=== PATIENT | female | born 1985 | race Caucasian/White ===

== ENCOUNTER 2020-09-18 12:42 | Observation (INO) | payer OTHER, SELFPAY ==
--- NOTE | ~2020-09-18 | US_ITS ---
EXAMINATION: US OB limited w BPP DATE: 09/18/2020 15:03 INDICATION: Spotting during third trimester TECHNIQUE: Real-time pelvic ultrasound was performed. The interpreting radiologist was not present fo r the study. COMPARISON: None. FINDINGS: There is a single living fetus in vertex presentation. The placenta is anterior. heart rate is 126 beats per minute (bpm). The amniotic fluid index is 19.7 cm which is normal Biophysical profile performed by the technologist: breathing (30 sec sustained breathing in 30 minutes): 2 out of 2 movement (3 gross body movements in 30 minutes): 2 out of 2 tone (one episode of zzyjfmo-lgtcyssvm-cxdhifa limb movement): 2 out of 2 Amniotic fluid pocket (2 cm): 2 out of 2 Total score: 8 out of 8 IMPRESSION: 1. Single living fetus in vertex presentation. 2. Biophysical profile 8 out of 8. 3. Normal amniotic fluid index. Reviewed, dictated and finalized at location A. 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
--- NOTE | 2020-09-18 12:42 | OBADM ---
This patient, Marily Pratt, admitted to the OB room OB Post 116 for observation. Patient/family oriented to hospital policies and general routines including ID bracelet, bed and alarms, visiting hours, pain management, procedures, bathroom and other care routines, personal items, smoking policy, room service/diet, and visiting hours. Patient/Family are encouraged to report perceived risks to care and to ask questions if they do not understand what they are told or what they should do.
[2020-09-18 13:00] VITALS: BP 128/76; PULSE 97
[2020-09-18 13:01] VITALS: BP 128/77; PULSE 93
[2020-09-18 13:16] VITALS: BP 108/56; PULSE 87
[2020-09-18 13:17] VITALS: BP 108/56; PULSE 87
[2020-09-18 13:30] VITALS: BP 110/61; PULSE 83
[2020-09-18 13:30] LABS: Add Urine Microscopic? YES; Appearance Urine Cloudy (Clear); Bacteria Urine Trace /hpf; Bilirubin Urine Negative (Negative); Blood Urine Negative (Negative); Color Urine Yellow (Yellow); Glucose Urine UA Negative (Negative); Ketones Urine Negative (Negative); Leukocyte Esterase Ur Negative LEU/UL (Negative); Nitrate Urine Negative (Negative); Protein Urine Negative (Negative); RBC Urine 0-2 /hpf (0-2); Specific Grav Ur 1.005 (1.001-1.035); Squamous Epithelial Cell Urine Occasional /hpf (Few); Urobilinogen Urine Negative mg/dL (<2.0)
[2020-09-18 13:45] VITALS: BP 113/71; PULSE 90
[2020-09-18 13:51] LABS: Fetal Fibronectin Negative
--- NOTE | 2020-09-18 15:22 | PC.NURSE ---
Dr. Calix notified of lab results, NST, SVE and ultrasound results. Discharge orders received.
--- NOTE | 2020-10-17 09:46 | PM.OBTRLD ---
OB - Triage/Final Diagnosis Evaluation Laboratory results: Laboratory Tests 09/18/20 09/18/20 13:08 13:08 Urine Color Yellow Urine Appearance Cloudy H Urine pH 7.0 Ur Specific [place] 1.005 Urine Protein Negative Urine Glucose (UA) Negative Urine Ketones Negative Ur Blood (Man) Negative Urine Nitrate Negative Urine Bilirubin Negative Urine Urobilinogen Negative Leukocyte Esterase Rfl Negative Urine RBC 0-2 Urine WBC 4-6 H Ur Squamous Epith Cells Occasional Urine Bacteria Trace Fibronectin Negative Final Diagnosis (1) Spotting complicating , third trimester: Code(s): O26.853 - Spotting complicating , third trimester Status: Acute
== END 2020-09-18 15:36 | disposition home or self-care (01) ==
PROVIDERS: Admitting Provider Obstetrics & Gynecology; Visit Provider Obstetrics & Gynecology
DX: O26.853 Spotting complicating pregnancy, third trimester (principal); Z3A.00 Weeks of gestation of pregnancy not specified
CPT/HCPCS: 76815; 76819; 81001; 82731; G0378; G0379

== ENCOUNTER 2020-10-19 14:09 | Outpatient (CLI) | payer OTHER, SELFPAY ==
[2020-10-19 14:46] LABS: Hematocrit 33.2 % (37.0-47.0); Hemoglobin 11.3 g/dL (12.0-15.0); Mean Corpuscular Hemoglobin 28.4 pg (26-34); Mean Corpuscular Volume 83.4 fl (80-100); Platelet Count Result 239 k/mm3 (150-375); Red Blood Count 3.98 M/mm3 (4.2-5.4); Red Cell Distribution Width 15.1 % (11.5-14.5); White Blood Count 10.7 K/mm3 (4.5-10.0)
[2020-10-20 09:10] LABS: Rapid Plasma Reagin Non-Reactive (NonReactive)
== END 2020-10-19 14:10 | disposition home or self-care (01) ==
LOC: ANHLAB 14:10
PROVIDERS: PCP Physician Assistant; Visit Provider Obstetrics & Gynecology
DX: Z01.818 Encounter for other preprocedural examination (principal)
CPT/HCPCS: 36415; 85027; 86592; 86850; 86900; 86901

== ENCOUNTER 2020-10-20 05:32 | Inpatient (IN) | payer OTHER, SELFPAY ==
[2020-10-20] VITALS (56 sets, daily range): BP systolic 87–143; BP diastolic 57–95; PULSE 18–98; RESP 14–18; TEMP 36.2–36.8; O2SAT 95–100; BMI 33.3
[2020-10-20] MEDS: LACTATED RINGERS 1,000 ML 125 ML IV CONT (06:41)
--- NOTE | 2020-10-20 06:46 | LDADM ---
This patient, Jaimie Pratt, was admitted to Labor/Delivery/Recovery 120 on 10/20/20 at 05:32. Plans for labor, pain management and were discussed with patient. Patient/family oriented to hospital policies and general routines including ID bracelet, bed and alarms, visiting hours, pain management, procedures, bathroom and other care routines, personal items, smoking policy, room service/diet and guest tray routines, security routines, and visiting hours. Patient/Family are encouraged to report perceived risks to care and to ask questions if they do not understand what they are told or what they should do. See OBIX for further documentation.
--- NOTE | 2020-10-20 06:58 | WPDANESEPPF ---
Anes - Initial Pre Proc Eval Procedure: Operation Date: 10/20/20 07:30 Proposed Procedures p Repeat Section - Yong Calix MD Date/Time: 10/20/20 06:58 Surgeon: Yong Calix MD Pre Op Diagnosis: Patient Data Age: 35 Gender: F Height: 5 ft 1 in Weight: 80 kg Last Vital Signs Pulse 95 10/20/20 06:32 BP 116/71 10/20/20 06:32 Allergies Allergy/AdvReac Type Severity Reaction Status Date / Time gluten Allergy Severe Vomiting Verified 10/19/20 13:45 Penicillins Allergy Severe Anaphylaxis Verified 10/19/20 13:45 Home Medications Medication Instructions Recorded Confirmed Type docosahexaenoic acid 200 mg capsule 200 mg PO DAILY cap 03/22/20 10/19/20 History blood sugar diagnostic #10 ea 08/15/20 10/19/20 History blood-glucose meter #1 ea 08/15/20 10/19/20 History lancets and blood glucose strips #1 08/15/20 10/19/20 History combo pack blood sugar diagnostic #10 ea 08/16/20 10/19/20 Rx blood-glucose meter #1 ea 08/16/20 10/19/20 Rx [id number]-vit C-docusate sod 1 tablet PO DAILY 08/16/20 10/19/20 History 90 mg-1 mg-12 mcg-120 mg-50mg tablet lancets 30 gauge #100 ea 08/26/20 10/19/20 Rx Vitamin 1 tablet PO DAILY 09/18/20 10/19/20 History cholecalciferol (vitamin D3) 50 mcg PO DAILY 10/08/20 10/19/20 History omega-3 fatty acids [Fish Oil] See Rx Instructions .ROUTE .COMPLEX 10/08/20 10/19/20 History Patient hx anesthesia problems: none Family hx anesthesia problems: none PMFSH Surgical History Surgical History History of myomectomy Previous section Family History Family History Father Malignant neoplasm of prostate Social History Social History Smoking status: Never smoker Alcohol intake: current Substance use: never Gender identity (if verbalized by the patient): Female Spiritual care concerns: No Anes - Eval Final PreProcedure Day of Procedure 10/20/20 06:58 Patient weight: overweight Heart: regular rate and rhythm Lungs: clear to auscultation Airway: Mallampati scale class II Neurological: alert and oriented Last oral intake: >/= 8 hours ASA classification: II Emergent: no Anesthetic plan: proceed Anesthesia type and monitoring: regional spinal and standard monitoring Informed Consent: The patient's anesthetic plan and its attendant risks and benefits were discussed with the patient/family/POA. Questions were solicited and answers provided to the satisfaction of the patient/family/POA.
--- NOTE | 2020-10-20 07:14 | PM.IMHP ---
H&P: HPI History of Present Illness Date/Time: 10/20/20 07:14 Chief Complaint: Elective repeat cesearean section. Narrative: Jaimie Pratt is a 35 year old female at 37 5/7 weeks admitted for repeat cesearean section. She has had a prior myomectomy and has been recommended for repeat before onset of labor. PNC also significant for advanced maternal age. She has had normal aneuploid testing. She had a prior child, IVF conception with imperforate anus and small VSD, not requiring surgery. She did have an abnormal one hour and declined three hour and has been doing fingersticks and she was monitoring her carbohydrate intake during and her finger sticks have been normal. Therefore did not get diagnosis of gestational diabetes. She had level 2 there was a mild grade 1 UTD at second trimester survey. This resolved. Not seen on subsequent ultrasounds. She has a small fibroid, last measurement was 2cm. She had a normal echo. Has anemia of . She is taking iron supplementation. She does not desire permanent sterilization. She is planning on getting vasectomy. Labs reviewed. Pos GBS resistant to Clindamycin. Review of Systems Review of Systems: All systems reviewed & are unremarkable except as noted in HPI and below Constitutional: Constitutional: Reports no additional constitutional complaints and Denies headache(s) Eyes: Eyes: Denies spots in vision ENT: Reports system reviewed and no additional complaints, except as documented and Denies headache(s) Cardiovascular: Cardiovascular: Denies chest pain and Denies dyspnea Respiratory: Respiratory: Denies dyspnea Gastrointestinal: Gastrointestinal: Reports no additional gastrointestinal complaints Genitourinary: Genitourinary: Reports amenorrhea Musculoskeletal: Musculoskeletal: Reports no additional musculoskeletal complaints Integumentary/Breasts: Skin/Breast: Denies breast mass and Denies rash Neurologic: Denies headache(s) Psychiatric: Psychiatric: Reports no additional psychiatric complaints [facility] Surgical History Surgical History History of myomectomy Previous section Family History Family History Father Malignant neoplasm of prostate Social History Social History Smoking status: Never smoker Alcohol intake: current Substance use: never Gender identity (if verbalized by the patient): Female Spiritual care concerns: No Meds Home Medications and Allergies Home Medications Medication Instructions Recorded Confirmed Type docosahexaenoic acid 200 mg capsule 200 mg PO DAILY cap 03/22/20 10/19/20 History blood sugar diagnostic #10 ea 08/15/20 10/19/20 History blood-glucose meter #1 ea 08/15/20 10/19/20 History lancets and blood glucose strips #1 08/15/20 10/19/20 History combo pack blood sugar diagnostic #10 ea 08/16/20 10/19/20 Rx blood-glucose meter #1 ea 08/16/20 10/19/20 Rx qnrw-CJ-[id number]-vit C-docusate sod 1 tablet PO DAILY 08/16/20 10/19/20 History 90 mg-1 mg-12 mcg-120 mg-50mg tablet lancets 30 gauge #100 ea 08/26/20 10/19/20 Rx Vitamin 1 tablet PO DAILY 09/18/20 10/19/20 History cholecalciferol (vitamin D3) 50 mcg PO DAILY 10/08/20 10/19/20 History omega-3 fatty acids [Fish Oil] See Rx Instructions .ROUTE .COMPLEX 10/08/20 10/19/20 History Allergies Allergy/AdvReac Type Severity Reaction Status Date / Time gluten Allergy Severe Vomiting Verified 10/19/20 13:45 Penicillins Allergy Severe Anaphylaxis Verified 10/19/20 13:45 Vital Signs Vital Signs - 24 hr 10/20/20 06:32 Pulse Rate 95 Blood Pressure 116/71 Exam Const: General: no acute distress Eyes: General: appearance normal, both eyes and all related structures Resp: Effort & Inspection: normal respiratory effort Cardio:
[2020-10-20 08:04] LABS: Glucose Point of Care 98 (65-105)
[2020-10-20] MEDS: KETOROLAC 30 MG/ML VIAL (*BKC) IV PUSH (08:23)
[2020-10-20] MEDS: OXYTOCIN 30 UNITS/NS 500 ML 30 UNITS/500 ML BAG 125 UNITS IV CONT (09:21)
--- NOTE | 2020-10-20 10:04 | PM.PROC ---
Procedure Note - Detailed Date of procedure: 10/20/20 Pre-op diagnosis: 1. Elective repeat cesearean section. 2. Prior myomectomy 3. Advanced maternal age 4. GBS carrier 5. Fibroid uterus. Post-op diagnosis: same Procedure performed: Repeat low transverse cesearean section Description of procedure: After informed consent was obtained patient was taken to the operating room and adequate spinal anesthesia was administered. She was placed in supine position and prepped and draped in sterile fashion. Attention was turned to the abdomen and a Pfannenstiel skin incision was made along her prior Pfannenstiel scar. The subcutaneous tissue was dissected with scalpel and cautery. The fascia was incised in the midline stented bilaterally with Shane scissors. The fascia was from rectus muscle superiorly and inferiorly bluntly and sharply. Scar tissue of the abdominal muscles to the fascia was lysed with Shane scissors. The midline was identified the midline was entered and the peritoneum was tented up with clamps and entered with Metzenbaum scissors. The pelvic organs were visualized. The lower uterine segment and vesico-uterine peritoneum was visualized. The lower uterine segment was noted to be thin. It was intact. Bladder was dissected from lower uterine segment. A bladder flap was made. A low-transverse uterine incision was made and was extended bluntly. The amniotic cavity was entered. Clear fluid was noted. The incision was extended bluntly and the head and the rest the infant was delivered. The was vigrously crying upon delivery. The cord was doubly clamped and cut and the infant was handed to nursery staff in attendance. Cord segment was obtained for cord gases. Cord blood was obtained. The placenta was removed manually. The uterine cavity was sponge curetted. The uterus was noted to have good tone. The uterus was exteriorized. There were noted to be two lower posterior fibroids. Approximately 2cm. The incision of the uterus was closed in a running locking fashion with 0 Vicryl. Several figure of eight sutures were used for hemostasis on right. Umbricating stitches of 0 Vicryl were used. Hemostasis was noted. The posterior cul-de-sac was irrigated. Uterus was placed back into the abdomen. The paracolic gutters were irrigated the uterine incision was inspected again and noted to be hemostatic. Interceed adhesion barrier was placed at the lower uterine segment and anterior uterus. The omentum was placed over the site. The muscled bellies approximated well. The fascia was closed in a running fashion with 0 Vicryl with 2 sutures. Hemostasis was noted. Subcutaneous tissue was irrigated. Hemostasis obtained with cautery. The skin incision was closed with 4 O Vicryl on a Marv needle. Dermabond was placed. Hemostasis was noted. Dressing placed over the incision. Sponge count correct x 3. The patient tolerated procedure well and was taken to recovery in stable condition. Anesthesia: spinal Surgeon: Yong Calix MD Estimated blood loss (mL): 575 Urine output (mL): 150 Drains: No Packing: No Pathology: none sent Complications: No immediate complications Condition: stable Disposition: floor (Recovery) Findings: Female infant, 8,9 apgars, 6lb 1 oz. Crying upon delivery. 2 small posterior fibroids noted.
--- NOTE | 2020-10-20 12:03 | PC.NURSE ---
Patient transferred to post room #286 via stretcher. Support person present. Oriented to unit, room, information board, rooming in, admission packet and security measures. Patient verbalizes understanding.
[2020-10-20] MEDS: DEXTROSE 5%/0.45% SOD CHL 1,000 ML 125 ML IV CONT (14:14)
--- NOTE | 2020-10-20 15:50 | PC.NURSE ---
1330 Mother set up with breast pump at this time as baby is in Level II nursery and unable to breast feed. Reviewed set-up of pump, and cleaning of equipment; 24mm flanges used, and mother reported comfortable pumping. Set on Stimulation cycle. Mother instruced to try to pump about every 3 hours, til later this evening, then rest through the night and resume pumping in the morning if baby still unable to feed. She voiced understanding.
[2020-10-21] MEDS: IBUPROFEN 600 MG TABLET PO ×3 (00:47→16:55)
[2020-10-21 05:15] VITALS: BP 116/73; PULSE 89; RESP 16; TEMP 36.3; O2SAT 100
[2020-10-21 05:58] LABS: Basophils Percent Auto 0.3 % (0.2-1.2); Eosinophils Absolute Auto 0.3 K/mm3 (0-0.3); Eosinophils Percent Auto 1.9 % (0-4.4); Hematocrit 29.2 % (37.0-47.0); Hemoglobin 9.6 g/dL (12.0-15.0); Immature Granulocyte Absolute 0.11 K/mm3 (0.00-0.031); Immature Granulocyte Percent A 0.8 % (0-0.5); Lymphocytes Absolute Auto 1.95 K/mm3 (0.9-3.2); Lymphocytes Percent Auto 13.3 % (18.3-44.2); Mean Corpuscular HGB Conc 32.9 g/dl (32-36); Mean Corpuscular Hemoglobin 28.6 pg (26-34); Mean Corpuscular Volume 86.9 fl (80-100); Monocytes Absolute Auto 1.1 K/mm3 (0.1-0.6); Monocytes Percent Auto 7.4 % (2.6-8.5); Neutrophils Absolute Auto 11.2 K/mm3 (1.3-6.7); Neutrophils Percent Auto 76.3 % (45.5-73.1); Platelet Count Result 198 k/mm3 (150-375); Red Blood Count 3.36 M/mm3 (4.2-5.4); Red Cell Distribution Width 15.3 % (11.5-14.5); White Blood Count 14.6 K/mm3 (4.5-10.0)
--- NOTE | 2020-10-21 07:39 | WPDANLDPN2 ---
Anes-Prog Note L&D Date/Time: 10/21/20 07:39 Comfortable throughout: section Neuraxial method: spinal Epidural/Spinal procedure site: clean & non-tender Neuro status: Neuro function grossly intact. Cardiovascular status: normal Respiratory status: normal Airway patency: baseline Mental status: baseline Post-Op hydration status: normal Vital Signs: Last Vital Signs Temp 36.3 C L 10/21/20 05:15 Pulse 89 10/21/20 05:15 Resp 16 10/21/20 05:15 BP 116/73 10/21/20 05:15 Pulse Ox 100 10/21/20 05:15 Pain score (VAS): 0/10. Patient resting in bed at time of assessment, appears comfortable. Support person at bedside. I/O: Intake & Output 10/20/20 10/20/20 10/21/20 15:59 23:59 07:59 Intake Total 1350 1100 Output Total 250 1800 1700 Balance 1100 -700 -1700 Post-procedural complaints: none Patient feedback: Patient satisfied with anesthetic care.
--- NOTE | 2020-10-21 07:40 | WPDANLDNPN2 ---
Anes-Prog Note L&D-Neuraxial Date/Time: 10/21/20 07:40 Neuraxial medications: intrathecal PF morphine Opiod-related complaints: none Patient feedback: Patient satisfied with post-operative pain management.
--- NOTE | 2020-10-21 07:48 | PM.OBPNVD ---
OB - PN: Subj Subjective Date/time seen: 10/21/20 07:48 She reports adequate pain control. Mild lochia. She has ambulated without problems. Tolerated liquids. No flatus. Baby in nursing well. OB - PN: Obj Data Labs CBC & Chem 7: 10/21/20 05:28 Labs: Laboratory Results - last 24 hr 10/20/20 10/21/20 06:39 05:28 WBC 14.6 H RBC 3.36 L Hgb 9.6 L Hct 29.2 L MCV 86.9 MCH 28.6 MCHC 32.9 RDW 15.3 H Plt Count 198 MPV 10.0 Immature Gran % (Auto) 0.8 H Neut % (Auto) 76.3 H Lymph % (Auto) 13.3 L [place] % (Auto) 7.4 Eos % (Auto) 1.9 Baso % (Auto) 0.3 Lymph # (Auto) 1.95 [place] # (Auto) 1.1 H Eos # (Auto) 0.3 Baso # (Auto) 0.0 Abs Immat Gran (auto) 0.11 H Absolute Neuts (auto) 11.2 H Absolute Nucleated RBC 0.0 Nucleated RBC % 0.0 POC Capillary Glucose 98 OB - PN A/P Assessment and Plan (1) Delivery by elective section: Code(s): O82 - Encounter for delivery without indication Status: Acute Assessment and Plan: POD1 s/p repeat cesearean section. She is doing well. Routine post op care. Time Spent With Patient Time: Total time spent is greater than 50% in coordination of care (as documented) at patient's floor/unit and/or counseling patient: Exam Const: General: comfortable and no acute distress Resp: Effort & Inspection: normal respiratory effort Auscultation: clear to auscultation bilaterally Cardio: Rate: regular rate GI: Other: decreased bowel sounds, incision intact, no drainage or erythema Extrem: General: normal to inspection Other: nontender Psych: Mental Status: mental status grossly normal Affect: normal affect
[2020-10-21 08:00] VITALS: BP 115/72; PULSE 92; RESP 18; TEMP 36.5; O2SAT 97
--- NOTE | 2020-10-21 15:35 | PC.NURSE ---
4559 Breast feeding note; nurse visited with mother; she reports completing a breast feeding, and is now pumping. She states baby is latching and nursing, and mother has no questions or concerns for LC; mother plans to continue pumping to enhance her milk production; she reports plan to contact an RN IBCLC she knows of for home consult. Nurse agreed.
[2020-10-21] MEDS: ACETAMINOPHEN 325 MG TABLET 650 MG PO (16:58)
[2020-10-21 20:15] VITALS: BP 117/74; PULSE 98; RESP 16; TEMP 36.2; O2SAT 99
[2020-10-22] MEDS: IBUPROFEN 600 MG TABLET PO (04:15)
[2020-10-22 07:15] VITALS: BP 108/90; PULSE 90; RESP 18; TEMP 36.1; O2SAT 100
[2020-10-22] MEDS: ACETAMINOPHEN 325 MG TABLET 650 MG PO (07:31)
--- NOTE | 2020-10-22 09:20 | PM.OBPNVD ---
OB - PN: Subj Subjective Date/time seen: 10/22/20 09:20 Patient doing well this AM. Pain well controlled with medication. Denies any headache, chest pain, SOB, N/V. Tolerating PO diet. Minimal lochia. Ambulating without difficulty. Voiding well. +flatus. OB - PN: Obj Data Labs CBC & Chem 7: 10/21/20 05:28 OB - PN A/P Assessment and Plan (1) Delivery by elective section: Code(s): O82 - Encounter for delivery without indication Status: Acute Assessment and Plan: POD#2 doing well continue routine postoperative care encourage ambulation and use of IS discharge home in stable condition emergency precautions reviewed f/u in office in 2 weeks Time Spent With Patient Time: Total time spent is greater than 50% in coordination of care (as documented) at patient's floor/unit and/or counseling patient: Exam Const: General: cooperative, healthy appearing, comfortable and no acute distress GI: Inspection: non-distended GI Palp: Yes Soft to palpation and No Tenderness to palpation present (GI) Other: inc c/d/i fundus firm below umbilicus Extrem: Right lower extremity: no edema Left lower extremity: no edema Other: no calf tenderness
--- NOTE | 2020-10-22 09:24 | P.DS_ITS ---
DS: Admitting Diagnosis Admitting Diagnosis Admitting Diagnosis: Scheduled section DS: Discharge Diagnosis Discharge Diagnosis (1) Delivery by elective section: Code(s): O82 - Encounter for delivery without indication Status: Acute OB - DS: Summary OB Procedures : None OB Procedures Intrapartum: OB Procedures: : None Peripartum Data Procedures: Procedures Operation Date: 10/20/20 07:30 Actual Procedures Side Surgeon p Repeat Section Yong Calix MD Time Spent with Patient Time attestation: Total time spent providing and/or coordinating discharge services: Discharge Plan Discharge Attending physician on discharge: Vaishali Craig Discharging Clinician: Vaishali Craig Anticipated Discharge Date/Time: 10/22/20 09:24 Patient Disposition: Home, Self-Care Activity: as tolerated and pelvic rest Diet: regular Discharge Instructions: Call office ([phone]) to schedule the following appointments: 1. Postoperative/wound check in 2 weeks. 2. visit in 4-6 weeks. You may take Ibuprofen 600mg every 6 hours as needed for pain. I have sent a prescription for a stronger pain medication, [place], to your pharmacy. You may take this as prescribed for breakthrough pain (pain that is not controlled with Ibuprofen). No driving for at least two weeks. You also may not drive while taking narcotics. Pain medication may make you constipated. It may be helpful to take an ouov-jqd-nlpjvsw stool softener, such as Colace and/or Senokot, along with the pain medication to help lessen constipation. Call office or go to ED for pain not controlled with medication, headache, chest pain, shortness of breath, fever, chills, persistent nausea or vomiting, severe abdominal pain, heavy vaginal bleeding >2 pads/hour, foul vaginal discharge or odor, any redness near incision, severe pain, pus or drainage from incision site, or problems with your breasts. Patient Instructions: Antibiotic Form Stand Alone Forms: General Discharge Information Follow-up/Referrals: Yong Calix MD [Physician] - Discharge Medications: New hydrocodone-acetaminophen 5-325 mg Tablet 1 - 2 tablet PO Q4-6H PRN (Reason: Moderate Pain (4-6)) Qty: 30 RF: 0 Continued Vitamin 1 tablet PO DAILY RF: 0 Discontinued DHA 200 mg capsule 200 mg PO DAILY RF: 0 [id number]-W-oikhrxp sodium [id number] vj-fc-ziz-mg-mg tablet 1 tablet PO DAILY RF: 0 cholecalciferol (vitamin D3) 50 mcg (2,000 unit) Tablet 50 mcg PO DAILY RF: 0 Date of admission: 10/20/20 05:32 Primary Care Provider: Francisco,Elizabeth Admitting Provider: Yong Calix Attending physician on admission: Yong Calix Condition: Stable
--- NOTE | 2020-10-22 10:13 | PC.NURSE ---
Patient viewed the discharge video Mother & Baby Care, The First Two Weeks . Patient was given the opportunity and encouraged to ask questions. Patient verbalized understanding of information shared and has been given the mother/baby guide for home reference.
[2020-10-25 10:53] VITALS: BP 136/81; PULSE 75; RESP 16; TEMP 36.8; O2SAT 100
== END 2020-10-22 11:10 | disposition home or self-care (01) | DRG 788 ==
LOC: ANHOB2 10-22 09:51 → ANHLDR 10-25 11:29 → ANHOB2 10-25 11:29
PROVIDERS: Admitting Provider Obstetrics & Gynecology; PCP Physician Assistant; Visit Provider Student in an Organized Health Care Education/Training Program
PROC: 10D00Z1 Extraction of Products of Conception, Low, Open Approach (ICD-10-PCS; CPT 59514; principal; 2020-10-20 07:30)
DX: O34.211 Maternal care for low transverse scar from previous cesarean delivery (principal); Z37.0 Single live birth; Z3A.37 37 weeks gestation of pregnancy; O34.13 Maternal care for benign tumor of corpus uteri, third trimester; D25.9 Leiomyoma of uterus, unspecified; O99.824 Streptococcus B carrier state complicating childbirth
CPT/HCPCS: 36415; 85025; 85027; 86592; 86850; 86900; 86901; A9270; J0131; J1885; J2274; J2370; J2405; J2590; J3370; J7120

== ENCOUNTER → 2022-02-27 10:45 | Outpatient (CLI) | payer OTHER, SELFPAY ==
--- NOTE | ~2022-02-27 | US_ITS ---
US thyroid INDICATION: Hypothyroidism TECHNIQUE: Real-time sonographic images of the thyroid gland were obtained. COMPARISON: Hypothyroidism FINDINGS: The right thyroid lobe measures 5.1 x 1.7 x 1.5 cm. The left thyroid lobe measures 4.7 x 1 .2 x 1.5 cm. There is normal echotexture and echogenicity throughout the thyroid gland. No discrete n odules identified. Normal vascular flow is present. IMPRESSION: 1. Normal thyroid without discrete nodule or abnormal vascularity. Reviewed, dictated and finalized at location A.
== END ==
PROVIDERS: PCP Physician Assistant; Visit Provider Physician Assistant
DX: E03.9 Hypothyroidism, unspecified (principal)
CPT/HCPCS: 76536